=== PATIENT | male | born 1955 | race Caucasian/White ===

== ENCOUNTER 2016-11-19 11:19 | Day surgery (SDC) | payer OTHER ==
[~2016-11-19] VITALS: Ht 177.8 cm; Wt 100.2 kg
[~2016-11-19 11:19] MED LIST: ADVAIR 250-501 EACH IH; ADVAIR 250/501 DISK IH; ADVIL CONGESTI1 EACH PO; ASPIR 8181 M1 PO; ASPIR-LOW81 MG PO; BENZONATATE100 MG PO; BRINTELLIX5 MG PO; BUTALB-APAP-CA1 EACH PO; CARAFATE1 GM PO; CARAFATE100 MG/ML PO; CARDIZEM CD240 MG PO; CARVEDILOL12.5 MG PO; CARVEDILOL25 MG PO; COLACE100 MG PO; COMPAZINE10 MG PO; CORTISPORIN EAR10 ML LEFT EAR; CYANOCOBAL1000 MCG/2 IM; CYANOCOBALAM1000 MCG PO; CYCLOBENZAPRINE10 MG PO; DAILY VITE1 EAC1 PO; DILAUDID4 MG PO; DOCUSATE SODIU100 MG PO; EX-LAX15 MG PO; FAMOTIDINE40 MG PO; FIORICET 50-321 EAC1 PO; FIORICET,ESG1 TABLET PO; FISH OIL 1,0001 EAC7 PO; FLEXERIL10 MG PO; FLEXERIL5 MG PO; FLOMAX0.4 MG PO; FUROSEMIDE40 MG PO; GABAPENTIN300 MG PO; GABAPENTIN400 MG PO; GABAPENTIN600 MG PO; GLUCOSAMINE &1 EAC1 PO; IMMUNE COMPLEX PO; KENALOG IN ORABA5 GM MM; KENALOG,ARISTOC80 GM TP; KETOCONAZOLE60 GM TP; LAMISIL250 MG PO; LASIX40 MG PO; LEVALBUTER1.25 MG/0. AEROSOL; LEVAQUIN500 MG PO; LEVOFLOXACIN500 MG PO; LEVOFLOXACIN750 MG PO; LOPRESSOR25 MG PO; MELOXICAM7.5 MG PO; MEN'S MULTI-VI1 EACH PO; METHADONE5 MG PO; METRONIDAZOLE500 MG PO; MIRALAX17 GM PO; MOBIC15 MG PO; NABUMETONE750 MG PO; NEURONTIN600 MG PO; NYSTOP60 GM TP; ONDANSETRON HCL4 MG PO; ONE-A-DAY ESSE1 EAC1 PO; PANTOPRAZOLE SO40 MG PO; PAROXETINE HCL20 MG PO; PAXIL20 MG PO; POTASSIUM CHLO10 ME3 PO; PREDNISONE10 MG PO; PREDNISONE20 MG PO; PREVACID30 MG PO; PROCHLORPERAZIN10 MG PO; PROMETHAZINE HC25 M1 PO; PROTONIX40 MG PO; PROVENTIL17 GM IH; QUETIAPINE FUMA25 MG PO; RESTORIL30 MG PO; SPIRIVA1 INHALATI IH; TEMAZEPAM30 MG PO; TOPAMAX100 MG PO; TOPIRAMATE ER25 MG PO; TOPIRAMATE25 MG PO; TOPIRAMATE50 MG PO; VENTOLIN HFA18 GM IH; VIIBRYD40 MG PO; VITAMIN D1000 INTUN PO; VITAMIN D400 UNI1 PO; XANAX2 MG PO; XARELTO20 MG PO; ZANTAC300 MG PO; ZIN PO; ZITHROMAX250 MG PO
[2016-11-19] MEDS ORDERED: BOTOX100 UNITS SC (12:55)
[2016-11-19 13:02] VITALS: BP 121/75
[2016-11-19 14:26] LABS: METH RESISTANT S AUREUS PCR POSITIVE (NEGATIVE)
[2016-11-19 14:27] LABS: PROBE CHECK PASS
[2016-11-19 17:00] VITALS: BP 134/85
[2016-11-19 17:51] VITALS: BP 143/89
== END 2016-11-19 18:00 | disposition home or self-care (01) ==
LOC: SDC 11:19
PROVIDERS: Orthopaedic Surgery Hand Surgery
PROC: 01N40ZZ Release Ulnar Nerve, Open Approach (ICD-10-PCS; principal; 2016-11-19)
DX: G56.22 Lesion of ulnar nerve, left upper limb (principal); Z79.891 Long term (current) use of opiate analgesic; G47.30 Sleep apnea, unspecified; Z79.01 Long term (current) use of anticoagulants; J44.9 Chronic obstructive pulmonary disease, unspecified; M19.90 Unspecified osteoarthritis, unspecified site; Z86.718 Personal history of other venous thrombosis and embolism; Z82.49 Family history of ischemic heart disease and other diseases of the circulatory system; Z82.61 Family history of arthritis; Z80.9 Family history of malignant neoplasm, unspecified
CPT/HCPCS: 87641; 93005; J0690; J2250; J2310; J3010; S0020

== ENCOUNTER 2016-12-17 01:59 | Inpatient (IN) | payer OTHER ==
[~2016-12-17] VITALS: Ht 2133.6 cm; Wt 94.1 kg
[~2016-12-17 01:59] MED LIST changes: +BOTOX100 UNITS SC
[2016-12-17 03:05] LABS: HEMATOCRIT 41.1 % (38.0-50.0); MCH 30.7 PG (29.0-34.0); MCHC 33.6 G/DL (30.0-36.0); MCV 91.3 FL (86-99); MEAN PLAT.VOLUME 11.3 uM^3 (9.0-12.4); PLATELET COUNT 189 K/uL (156-360); RBC DIS.WIDTH-CV 12.5 % (11.8-14.6); RBC DIS.WIDTH-SD 41.1 % (39-53); WHITE BLOOD COUNT 5.6 K/uL (4.1-10.2)
[2016-12-17 03:12] LABS: CARBON DIOXIDE (BICARBONATE) 29.9 MEQ/L (20-31)
[2016-12-17 03:22] LABS: CHLORIDE 104 mEq/L (99-109); POTASSIUM 3.9 mEq/L (3.7-5.4); SODIUM 138 mEq/L (136-147)
[2016-12-17 03:24] LABS: GLUCOSE 92 mg/dL (70-99)
[2016-12-17 03:25] LABS: ANION GAP 10 MEQ/L (2-14)
[2016-12-17 03:27] LABS: TROP-I INTERPRETATION NEGATIVE; TROPONIN-I < 0.01 ng/mL (0.0-0.30)
[2016-12-17 03:28] LABS: GFR ESTIMATE (CALCULATED) > 59 mL/min/
[2016-12-17 03:29] LABS: UREA NITROGEN (BUN) 13 mg/dL (9-23)
[2016-12-17] MEDS ORDERED: RANITIDINE HCL300 MG PO (09:40)
[2016-12-17] MEDS ORDERED: XARELTO20 MG PO (09:45)
[2016-12-17] MEDS ORDERED: FIORICET WI1 CAPSULE PO (10:19)
[2016-12-17] MEDS ORDERED: COLACE100 MG PO (10:20)
[2016-12-17] MEDS ORDERED: XANAX2 MG PO (10:25)
[2016-12-17 13:25] VITALS: BP 147/82
[2016-12-17 19:20] VITALS: BP 130/76
[2016-12-17 20:43] VITALS: BP 138/81
[2016-12-17 23:43] VITALS: BP 150/78
[2016-12-18 07:55] VITALS: BP 118/82
[2016-12-18 12:17] VITALS: BP 141/76
[2016-12-18 16:47] VITALS: BP 127/70
[2016-12-18] MEDS ORDERED: AMBIEN10 MG PO (19:15)
[2016-12-18] MEDS ORDERED: FIORICET WI1 CAPSULE PO (19:15)
[2016-12-18] MEDS ORDERED: CEFDINIR300 MG PO (19:15)
[2016-12-18] MEDS ORDERED: XANAX2 MG PO (19:15)
== END 2016-12-18 20:30 | disposition home or self-care (01) | DRG 190 ==
LOC: EME 01:59 → EDOF 03:49 → 5EAST 12:51
PROVIDERS: Emergency Medicine
DX: J44.1 Chronic obstructive pulmonary disease with (acute) exacerbation (principal); J18.9 Pneumonia, unspecified organism; I10 Essential (primary) hypertension; I48.0 Paroxysmal atrial fibrillation; F41.9 Anxiety disorder, unspecified; E86.0 Dehydration; J44.0 Chronic obstructive pulmonary disease with (acute) lower respiratory infection; G89.4 Chronic pain syndrome; G43.909 Migraine, unspecified, not intractable, without status migrainosus; M19.90 Unspecified osteoarthritis, unspecified site; Z87.01 Personal history of pneumonia (recurrent); Z87.891 Personal history of nicotine dependence
CPT/HCPCS: 71020; 80048; 82803; 83605; 83880; 84484; 85027; 87040; 93005; 94640; 94640 76; 94799; 99202; 99281; 99285; J0696; J2930; J7050; J7512

== ENCOUNTER 2017-03-16 22:43 | Inpatient (IN) | payer OTHER ==
[~2017-03-16] VITALS: Ht 177.8 cm; Wt 94.5 kg
[~2017-03-16 22:43] MED LIST changes: +AMBIEN10 MG PO; -CARDIZEM CD240 MG PO; +CARTIA XT240 MG PO; -CARVEDILOL25 MG PO; +CEFDINIR300 MG PO; +COREG6.25 M1 PO; +FIORICET WI1 CAPSULE PO; +LASIX20 MG PO; +RANITIDINE HCL300 MG PO
[2017-03-16 23:57] LABS: HEMATOCRIT 42.5 % (38.0-50.0); MCH 29.9 PG (29.0-34.0); MCHC 33.6 G/DL (30.0-36.0); MCV 88.9 FL (86-99); MEAN PLAT.VOLUME 11.3 uM^3 (9.0-12.4); PLATELET COUNT 173 K/uL (156-360); RBC DIS.WIDTH-CV 11.6 % (11.8-14.6); RBC DIS.WIDTH-SD 37.2 % (39-53); RED BLOOD COUNT 4.78 M/uL (4.00-5.50); WHITE BLOOD COUNT 5.4 K/uL (4.1-10.2)
[2017-03-17 00:10] LABS: CHLORIDE 105 mEq/L (99-109); POTASSIUM 4.5 mEq/L (3.7-5.4); SODIUM 139 mEq/L (136-147)
[2017-03-17 00:11] LABS: MAGNESIUM 2.1 mg/dL (1.3-2.7)
[2017-03-17 00:12] LABS: GLUCOSE 108 mg/dL (70-99)
[2017-03-17 00:13] LABS: ANION GAP 11 MEQ/L (2-14)
[2017-03-17 00:16] LABS: GFR ESTIMATE (CALCULATED) > 59 mL/min/; UREA NITROGEN (BUN) 6 mg/dL (9-23)
[2017-03-17 00:19] LABS: TROP-I INTERPRETATION NEGATIVE; TROPONIN-I < 0.01 ng/mL (0.0-0.30)
[2017-03-17] MEDS ORDERED: VISTARIL50 MG PO (00:21)
[2017-03-17 07:30] VITALS: BP 114/70
[2017-03-17 07:48] LABS: TROP-I INTERPRETATION NEGATIVE; TROPONIN-I < 0.01 ng/mL (0.0-0.30)
[2017-03-17 11:57] VITALS: BP 118/73
[2017-03-17] MEDS ORDERED: ALPRAZOLAM2 MG PO (13:39)
[2017-03-17] MEDS ORDERED: FLOMAX0.4 MG PO (13:48)
[2017-03-17 15:38] LABS: TROP-I INTERPRETATION NEGATIVE; TROPONIN-I 0.01 ng/mL (0.0-0.30)
[2017-03-17 16:11] VITALS: BP 110/79
[2017-03-17 20:00] VITALS: BP 144/97
[2017-03-17 23:57] VITALS: BP 139/78
[2017-03-18 04:15] VITALS: BP 129/79
[2017-03-18 06:15] LABS: TROP-I INTERPRETATION NEGATIVE; TROPONIN-I 0.01 ng/mL (0.0-0.30)
[2017-03-18 07:44] VITALS: BP 141/92
[2017-03-18 09:31] LABS: HEMATOCRIT 41.3 % (38.0-50.0); MCH 29.8 PG (29.0-34.0); MCHC 34.1 G/DL (30.0-36.0); MCV 87.3 FL (86-99); MEAN PLAT.VOLUME 11.1 uM^3 (9.0-12.4); PLATELET COUNT 179 K/uL (156-360); RBC DIS.WIDTH-CV 11.5 % (11.8-14.6); RED BLOOD COUNT 4.73 M/uL (4.00-5.50); WHITE BLOOD COUNT 7.2 K/uL (4.1-10.2)
[2017-03-18 09:40] LABS: CHLORIDE 106 mEq/L (99-109); POTASSIUM 3.7 mEq/L (3.7-5.4); SODIUM 139 mEq/L (136-147)
[2017-03-18 09:42] LABS: GLUCOSE 123 mg/dL (70-99)
[2017-03-18 09:43] LABS: ANION GAP 13 MEQ/L (2-14)
[2017-03-18 09:46] LABS: GFR ESTIMATE (CALCULATED) > 59 mL/min/; UREA NITROGEN (BUN) 8 mg/dL (9-23)
[2017-03-18 10:09] VITALS: BP 134/95
[2017-03-18 16:14] VITALS: BP 144/87
[2017-03-18 20:20] VITALS: BP 123/74; BP 123/741
[2017-03-19 00:08] VITALS: BP 139/84
[2017-03-19 04:28] VITALS: BP 105/75
[2017-03-19 06:22] LABS: MCH 29.6 PG (29.0-34.0); MCHC 33.3 G/DL (30.0-36.0); MCV 88.8 FL (86-99); MEAN PLAT.VOLUME 11.6 uM^3 (9.0-12.4); PLATELET COUNT 173 K/uL (156-360); RBC DIS.WIDTH-CV 11.9 % (11.8-14.6); RBC DIS.WIDTH-SD 38.3 % (39-53); RED BLOOD COUNT 4.39 M/uL (4.00-5.50); WHITE BLOOD COUNT 5.7 K/uL (4.1-10.2)
[2017-03-19 06:44] LABS: ALKALINE PHOSPHATASE 96 IU/L (3-129); ANION GAP 10 MEQ/L (2-14); CHLORIDE 104 MEQ/L (99-109); GFR ESTIMATE (CALCULATED) > 59 mL/min/; GLUCOSE 121 mg/dL (70-99); POTASSIUM 3.5 MEQ/L (3.7-5.4); SAMPLE HEMOLYSIS CHECK 0; SAMPLE ICTERIC CHECK 0; SAMPLE LIPEMIA CHECK 0; SODIUM 138 MEQ/L (136-147); TOTAL BILIRUBIN 0.5 MG/DL (0.0-1.0); UREA NITROGEN (BUN) 9 mg/dL (9-23)
[2017-03-19 07:08] VITALS: BP 100/63
[2017-03-19 11:46] VITALS: BP 109/65
[2017-03-19] MEDS ORDERED: DIGOXIN125 MCG PO (15:34)
[2017-03-19] MEDS ORDERED: CARVEDILOL25 MG PO (15:34)
[2017-03-19 18:14] VITALS: BP 104/68
== END 2017-03-19 18:31 | disposition home or self-care (01) | DRG 310 ==
LOC: EME 22:43 → EDOF 03-17 02:26 → 4EAST 03-17 02:26 → 5WEST 03-17 02:26 → EDOF 03-17 02:26 → ENRESERV 03-17 02:47 → 5WEST 03-17 07:22 → ENRESERV 03-18 09:33 → 4EAST 03-18 09:50 → ENPENDDIS 03-19 → 4EAST 03-19 18:31
PROVIDERS: Emergency Medicine; Internal Medicine
DX: I48.0 Paroxysmal atrial fibrillation (principal); I47.1 Supraventricular tachycardia; J44.9 Chronic obstructive pulmonary disease, unspecified; I11.0 Hypertensive heart disease with heart failure; I50.9 Heart failure, unspecified; G89.4 Chronic pain syndrome; R79.1 Abnormal coagulation profile; M19.90 Unspecified osteoarthritis, unspecified site; F17.200 Nicotine dependence, unspecified, uncomplicated; F41.9 Anxiety disorder, unspecified; F32.9 Major depressive disorder, single episode, unspecified; R29.6 Repeated falls; Z87.01 Personal history of pneumonia (recurrent); Z68.30 Body mass index [BMI] 30.0-30.9, adult; Z86.711 Personal history of pulmonary embolism; Z79.01 Long term (current) use of anticoagulants; Z82.49 Family history of ischemic heart disease and other diseases of the circulatory system
CPT/HCPCS: 71020; 71275; 80048; 80053; 80162; 83605; 83735; 84484; 85027; 85379; 90686; 93005; 94640; 94640 76; 94760; 94799; 99202; 99281; 99285; G0378; J0153; J1160; J1650; J2405; J3010; J7040; J7050; Q0177

== ENCOUNTER 2017-04-20 10:40 | Observation (INO) | payer OTHER ==
[~2017-04-20] VITALS: Ht 177.8 cm; Wt 95.4 kg
[~2017-04-20 10:40] MED LIST changes: +ALPRAZOLAM2 MG PO; +CARVEDILOL25 MG PO; +DIGOXIN125 MCG PO; +FIORICET 50-301 EACH PO; +VISTARIL50 MG PO
[2017-04-20 12:02] LABS: HEMATOCRIT 39.4 % (38.0-50.0); MCH 30.2 PG (29.0-34.0); MCHC 33.2 G/DL (30.0-36.0); MCV 90.8 FL (86-99); PLATELET COUNT 201 K/uL (156-360); RBC DIS.WIDTH-CV 12.5 % (11.8-14.6); RBC DIS.WIDTH-SD 41.2 % (39-53); RED BLOOD COUNT 4.34 M/uL (4.00-5.50); WHITE BLOOD COUNT 5.9 K/uL (4.1-10.2)
[2017-04-20 12:19] LABS: CHLORIDE 106 mEq/L (99-109)
[2017-04-20 12:20] LABS: SODIUM 141 mEq/L (136-147)
[2017-04-20 12:21] LABS: GLUCOSE 84 mg/dL (70-99)
[2017-04-20 12:23] LABS: ANION GAP 8 MEQ/L (2-14)
[2017-04-20 12:25] LABS: GFR ESTIMATE (CALCULATED) > 59 mL/min/
[2017-04-20 12:26] LABS: UREA NITROGEN (BUN) 11 mg/dL (9-23)
[2017-04-20 13:17] LABS: TROP-I INTERPRETATION NEGATIVE; TROPONIN-I < 0.01 ng/mL (0.0-0.30)
[2017-04-20] MEDS ORDERED: DIGOXIN125 MCG PO (13:37)
[2017-04-20] MEDS ORDERED: CARVEDILOL25 MG PO (13:37)
[2017-04-20 16:22] VITALS: BP 141/68
[2017-04-20 19:15] VITALS: BP 109/66
[2017-04-20 23:47] VITALS: BP 97/63
[2017-04-21 03:28] VITALS: BP 111/79
[2017-04-21 10:00] VITALS: BP 145/69
[2017-04-21 11:13] VITALS: BP 124/70
[2017-04-21 15:08] VITALS: BP 112/68
[2017-04-21 19:30] VITALS: BP 120/74
[2017-04-21 22:19] LABS: METH RESISTANT S AUREUS PCR NEGATIVE (NEGATIVE); PROBE CHECK PASS; SPECIMEN PROCESSING CONTROL PASS
[2017-04-22 00:08] VITALS: BP 133/75
[2017-04-22 04:00] VITALS: BP 130/90
[2017-04-22 09:00] VITALS: BP 132/87
[2017-04-22 12:47] VITALS: BP 156/84
[2017-04-22 16:24] VITALS: BP 142/83
[2017-04-22 19:58] VITALS: BP 145/89
[2017-04-22] MEDS ORDERED: PANTOPRAZOLE SO40 MG PO (21:28)
== END 2017-04-22 23:00 | disposition home or self-care (01) ==
LOC: EME 10:40 → 5WEST 13:30 → EDOF 13:30 → ENRESERV 13:48 → 5WEST 16:11
PROVIDERS: Family Medicine
PROC: 2W3QX1Z Immobilization of Right Lower Leg using Splint (ICD-10-PCS; principal; 2017-04-20)
DX: R55 Syncope and collapse (principal); S82.291A Other fracture of shaft of right tibia, initial encounter for closed fracture; W01.0XXA Fall on same level from slipping, tripping and stumbling without subsequent striking against object, initial encounter; Z91.81 History of falling; Y92.009 Unspecified place in unspecified non-institutional (private) residence as the place of occurrence of the external cause; R07.89 Other chest pain; I95.1 Orthostatic hypotension; T46.5X5A Adverse effect of other antihypertensive drugs, initial encounter; I11.0 Hypertensive heart disease with heart failure; I50.9 Heart failure, unspecified; J44.9 Chronic obstructive pulmonary disease, unspecified; I48.0 Paroxysmal atrial fibrillation; N40.0 Benign prostatic hyperplasia without lower urinary tract symptoms; K22.10 Ulcer of esophagus without bleeding; I47.1 Supraventricular tachycardia; G89.4 Chronic pain syndrome; E78.5 Hyperlipidemia, unspecified; Z87.01 Personal history of pneumonia (recurrent); M19.90 Unspecified osteoarthritis, unspecified site; G43.909 Migraine, unspecified, not intractable, without status migrainosus; M48.02 Spinal stenosis, cervical region; F41.9 Anxiety disorder, unspecified; F32.9 Major depressive disorder, single episode, unspecified; F10.21 Alcohol dependence, in remission; Z87.891 Personal history of nicotine dependence; Z86.711 Personal history of pulmonary embolism; Z79.01 Long term (current) use of anticoagulants; Z79.82 Long term (current) use of aspirin
CPT/HCPCS: 70450; 71020; 73610; 80048; 84484; 85027; 87641; 93005; 94640; 94640 76; 95819; 99202; 99281; 99284; G0378; J7030; Q0177

== ENCOUNTER 2018-01-31 22:06 | Inpatient (IN) | payer OTHER ==
[~2018-01-31] VITALS: Ht 177.8 cm; Wt 102.9 kg
[~2018-01-31 22:06] MED LIST changes: -ADVAIR 250/501 DISK IH
[2018-01-31 23:01] LABS: BASOPHIL (%) 0.3 % (0-1); EOSINOPHIL (%) 0.7 % (0-5); EOSINOPHIL COUNT 0.1 K/uL (0-0.3); HEMATOCRIT 38.7 % (38.0-50.0); IMMATURE GRANULOCYTE (%) 0.3 % (0.0-0.7); LYMPHOCYTE (%) 18.4 % (15-42); LYMPHOCYTE COUNT 1.8 K/uL (1.0-2.8); MCH 30.2 PG (29.0-34.0); MCHC 33.6 G/DL (30.0-36.0); MCV 89.8 FL (86-99); MONOCYTE (%) 12.9 % (3-12); MONOCYTE COUNT 1.2 K/uL (0-0.8); NEUTROPHIL (%) 67.4 % (45-76); NEUTROPHIL COUNT 6.4 K/uL (1.8-6.4); PLATELET COUNT 139 K/uL (156-360); RBC DIS.WIDTH-CV 12.9 % (11.8-14.6); RBC DIS.WIDTH-SD 42.5 % (39-53); RED BLOOD COUNT 4.31 M/uL (4.00-5.50); WHITE BLOOD COUNT 9.5 K/uL (4.1-10.2)
[2018-01-31 23:08] LABS: INTER. NORMALIZED RATIO 1.9
[2018-01-31 23:11] LABS: PTT 33.7 SEC (25-37)
[2018-01-31 23:20] LABS: CHLORIDE 104 mEq/L (99-109); POTASSIUM 4.1 mEq/L (3.7-5.4); SODIUM 140 mEq/L (136-147)
[2018-01-31 23:22] LABS: TROP-I INTERPRETATION NEGATIVE; TROPONIN-I < 0.01 ng/mL (0.0-0.30)
[2018-01-31 23:23] LABS: GLUCOSE 113 mg/dL (70-99); TOTAL PROTEIN 7.5 g/dL (6.4-8.3)
[2018-01-31 23:24] LABS: TOTAL BILIRUBIN 0.7 mg/dL (0.0-1.0)
[2018-01-31 23:26] LABS: ALKALINE PHOSPHATASE 108 IU/L (3-129); CREATININE 1.2 mg/dL (0.6-1.3); GFR ESTIMATE (CALCULATED) > 59 mL/min/ (58.99-99999)
[2018-01-31 23:27] LABS: UREA NITROGEN (BUN) 13 mg/dL (9-23)
[2018-01-31 23:28] LABS: AST (GOT) 30 IU/L (2-34); DIRECT BILIRUBIN 0.2 mg/dL (0.0-0.3)
[2018-01-31 23:29] LABS: ALT (GPT) 17 IU/L (3-49)
[2018-02-01 02:21] VITALS: BP 128/72
[2018-02-01] MEDS ORDERED: DILAUDID4 MG PO (02:22)
[2018-02-01] MEDS ORDERED: PROTONIX40 MG PO (02:36)
[2018-02-01] MEDS ORDERED: XARELTO20 MG PO ×2 (02:37→02:45)
[2018-02-01] MEDS ORDERED: COMPAZINE10 MG PO (02:38)
[2018-02-01] MEDS ORDERED: FLOMAX0.4 MG PO (02:43)
[2018-02-01] MEDS ORDERED: DIGOXIN125 MCG PO (02:45)
[2018-02-01] MEDS ORDERED: VISTARIL50 MG PO (02:46)
[2018-02-01] MEDS ORDERED: FIORICET 50-301 EAC1 PO (02:47)
[2018-02-01] MEDS ORDERED: CYANOCOBAL1000 MCG/2 IM (02:48)
[2018-02-01] MEDS ORDERED: CARVEDILOL25 MG PO (02:48)
[2018-02-01] MEDS ORDERED: CYCLOBENZAPRINE10 MG PO (02:49)
[2018-02-01] MEDS ORDERED: CARDIZEM CD,CA240 MG PO (02:49)
[2018-02-01] MEDS ORDERED: FUROSEMIDE40 MG PO (02:50)
[2018-02-01] MEDS ORDERED: STOOL SOFTENER100 M1 PO (02:50)
[2018-02-01] MEDS ORDERED: GABAPENTIN600 MG PO (02:51)
[2018-02-01 07:47] VITALS: BP 118/74
[2018-02-01 12:20] VITALS: BP 130/72
[2018-02-01] MEDS ORDERED: VIIBRYD40 MG PO ×2 (13:33→14:22)
[2018-02-01] MEDS ORDERED: MORPHINE SULFAT15 M1 PO (14:23)
[2018-02-01] MEDS ORDERED: ALPRAZOLAM2 MG PO (14:23)
[2018-02-01] MEDS ORDERED: MEN'S MULTI-VI1 EACH PO (14:24)
[2018-02-01] MEDS ORDERED: RANITIDINE HCL300 MG PO (14:24)
[2018-02-01 16:19] VITALS: BP 152/74
[2018-02-01] MEDS ORDERED: GLUCOSAMINE1000 MG PO (18:04)
[2018-02-01] MEDS ORDERED: ADVAIR 250/501 DISK IH (18:08)
[2018-02-01] MEDS ORDERED: SPIRIVA1 INHALATI IH (18:08)
[2018-02-01 19:31] VITALS: BP 133/82
[2018-02-01 23:43] VITALS: BP 128/73
[2018-02-02 03:44] VITALS: BP 147/81
[2018-02-02 07:33] VITALS: BP 146/87
[2018-02-02 11:32] VITALS: BP 132/67
[2018-02-02 15:55] VITALS: BP 162/78
[2018-02-02 19:46] VITALS: BP 130/83
[2018-02-02 23:21] VITALS: BP 105/70
[2018-02-03 04:00] VITALS: BP 108/62
[2018-02-03 06:22] LABS: HEMATOCRIT 32.9 % (38.0-50.0); HEMOGLOBIN 11.2 G/DL (12.5-16.6); MCH 30.1 PG (29.0-34.0); MCV 88.4 FL (86-99); PLATELET COUNT 145 K/uL (156-360); RBC DIS.WIDTH-CV 12.8 % (11.8-14.6); RBC DIS.WIDTH-SD 41.3 % (39-53); RED BLOOD COUNT 3.72 M/uL (4.00-5.50); WHITE BLOOD COUNT 6.7 K/uL (4.1-10.2)
[2018-02-03 06:39] LABS: ALBUMIN 3.5 G/DL (3.2-4.8); ALKALINE PHOSPHATASE 80 IU/L (3-129); ALT (GPT) 16 IU/L (3-49); AST (GOT) 23 IU/L (2-34); CHLORIDE 104 MEQ/L (99-109); CREATININE 0.7 MG/DL (0.6-1.3); GFR ESTIMATE (CALCULATED) > 59 mL/min/ (58.99-99999); GLUCOSE 104 mg/dL (70-99); POTASSIUM 3.1 MEQ/L (3.7-5.4); SODIUM 139 MEQ/L (136-147); TOTAL BILIRUBIN 0.3 MG/DL (0.0-1.0); TOTAL PROTEIN 5.9 G/DL (6.4-8.3); UREA NITROGEN (BUN) 9 mg/dL (9-23)
[2018-02-03 07:00] VITALS: BP 153/84
[2018-02-03 11:50] VITALS: BP 123/71
[2018-02-03 15:13] VITALS: BP 140/81
[2018-02-03 19:39] VITALS: BP 133/72
[2018-02-03 23:43] VITALS: BP 141/75
[2018-02-04 05:10] VITALS: BP 117/75
[2018-02-04 08:27] VITALS: BP 149/63
[2018-02-04 11:09] VITALS: BP 143/81
[2018-02-04] MEDS ORDERED: BACTRIM,SEPT1 TABLET PO (13:13)
[2018-02-04] MEDS ORDERED: SYMBICORT60 INHALAT IH (13:14)
== END 2018-02-04 14:05 | disposition home or self-care (01) | DRG 190 ==
LOC: EME → EDBD 22:06 → EME 22:06 → 3EAST 02-01 00:42 → EDOF 02-01 00:42 → 3EAST 02-01 01:56
PROVIDERS: Emergency Medicine; Internal Medicine
DX: J44.0 Chronic obstructive pulmonary disease with (acute) lower respiratory infection (principal); J18.9 Pneumonia, unspecified organism; J44.1 Chronic obstructive pulmonary disease with (acute) exacerbation; I48.2 Chronic atrial fibrillation; G89.4 Chronic pain syndrome; F32.9 Major depressive disorder, single episode, unspecified; F41.9 Anxiety disorder, unspecified; G43.909 Migraine, unspecified, not intractable, without status migrainosus; M19.90 Unspecified osteoarthritis, unspecified site; E66.9 Obesity, unspecified; Z68.32 Body mass index [BMI] 32.0-32.9, adult; Z87.891 Personal history of nicotine dependence
CPT/HCPCS: 71045; 71046; 80048; 80053; 80076; 83605; 83880; 84484; 85025; 85027; 85610; 85730; 87040; 93005; 94640; 94799; 99281; 99285; J0456; J0692; J0696; J1644; J2930; J7512; Q0177